=== PATIENT | female | born 1955 | race Caucasian/White ===

== ENCOUNTER → 2016-04-27 | Outpatient (CLI) | payer OTHER ==
--- NOTE | 2016-04-28 09:07 | MM ---
Reason for exam: screening (asymptomatic). Last mammogram was performed 1 year and 2 months ago. History: Patient is postmenopausal. Family history of breast cancer in maternal cousin. Physical Findings: A clinical breast exam by your physician is recommended on an annual basis and results should be correlated with mammographic findings. MG Screening Mammo w CAD Bilateral CC and MLO view(s) were taken. Prior study comparison: March 13, 2015, bilateral MG 3d screening mammo w/cad. February 11, 2014, bilateral MG screening mammo w CAD. There are scattered fibroglandular densities. There is no discrete abnormality. ASSESSMENT: Negative, BI-RAD 1 RECOMMENDATION: Routine screening mammogram of both breasts in 1 year.
== END | disposition home or self-care (01) ==
LOC: RADMAMWWP 09:26
PROVIDERS: ATTEND Family Medicine
DX: Z12.31 Encounter for screening mammogram for malignant neoplasm of breast (principal); Z78.0 Asymptomatic menopausal state; Z80.3 Family history of malignant neoplasm of breast

== ENCOUNTER → 2016-07-20 | Outpatient (CLI) | payer OTHER ==
--- NOTE | 2016-07-20 11:12 | FL ---
EXAMINATION TYPE: FL barium swallow DATE OF EXAM: 07/20/2016 LAP BANDING LIMITED ESOPHAGRAM: CLINICAL HISTORY: GERD per order. History of reflux and hiatal hernia repair 2014 with recurrent inga n and occasional dysphasia per patient. TECHNIQUE: Limited esophagram is performed utilizing thin liquid barium. A total of 2.9 minutes of f luoroscopic time was utilized during procedure. COMPARISON: CT abdomen and pelvis August 10, 2014. Upper GI study August 11, 2014. FINDINGS: The patient then drank oral contrast. There is good flow of contrast along the course of the proximal to mid esophagus. There is some delay in flow of contrast just past diaphragmatic hiatu s at level of prior Antolin fundoplication surgery. There is no leak appreciated. Some contrast remai ns in distal esophagus and refluxes up to mid esophageal level. Patient remains asymptomatic without nausea or vomiting. No recurrent hiatal hernia is seen. IMPRESSION: No evidence of recurrent hiatal hernia. Mild to moderate hesitancy or obstruction at hiat al hernia site is seen with reflux of contrast in distal esophagus to mid esophageal level noted. Pat ient remains asymptomatic.
== END | disposition home or self-care (01) ==
LOC: RADFLWHC 10:09
PROVIDERS: ATTEND Surgery
DX: K21.9 Gastro-esophageal reflux disease without esophagitis (principal)
CPT/HCPCS: 74220

== ENCOUNTER → 2017-07-14 | Outpatient (CLI) | payer OTHER ==
--- NOTE | 2017-07-18 14:54 | MM ---
Reason for exam: screening (asymptomatic). Last mammogram was performed 1 year and 3 months ago. History: Patient is postmenopausal. Family history of breast cancer in maternal cousin. Physical Findings: A clinical breast exam by your physician is recommended on an annual basis and results should be correlated with mammographic findings. MG Screening Mammo w CAD Bilateral CC and MLO view(s) were taken. Prior study comparison: April 27, 2016, bilateral MG screening mammo w CAD. March 13, 2015, bilateral MG 3d screening mammo w/cad. There are scattered fibroglandular densities. There is no discrete abnormality. No significant changes when compared with prior studies. ASSESSMENT: Negative, BI-RAD 1 RECOMMENDATION: Routine screening mammogram of both breasts in 1 year.
== END | disposition home or self-care (01) ==
LOC: RADMAMWWP 11:34
PROVIDERS: ATTEND Family Medicine
DX: Z12.31 Encounter for screening mammogram for malignant neoplasm of breast (principal)
CPT/HCPCS: 77067

== ENCOUNTER → 2017-07-26 | Outpatient (CLI) | payer OTHER ==
--- NOTE | 2017-07-26 13:45 | CT ---
EXAMINATION TYPE: CT urogram wo/w con DATE OF EXAM: 07/26/2017 HISTORY: Microscopic hematuria CT DLP: 2594mGycm Automated Exposure Control for Dose Reduction was Utilized. CONTRAST: CT scan of the abdomen and pelvis is performed without and with IV Contrast, patient injected with 10 0 mL of Isovue 300. COMPARISON: None. FINDINGS: LUNG BASES: No significant abnormality is appreciated. LIVER/GB: No focal hepatic lesion. Gallbladder is surgically absent with postsurgical dilatation of t he common bile duct and mild periportal edema. PANCREAS: No significant abnormality is seen. 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 ADRENALS: No significant abnormality is seen. KIDNEYS: A 2 mm nonobstructing left lower pole renal calculus is seen. No ureteral calculi are noted. There is a 6 mm right upper pole renal cyst. Small bilateral renal sinus cysts are best seen on the delayed images. Within the left lower pole there is a 2 small to accurately characterize hypoattenuat ed 4 mm lesion, likely representing a renal cyst. No hydronephrosis of either kidney. No uroepithelia l thickening. Urinary bladder is nonopacified and incompletely evaluated. No gross evidence of masses seen within the urinary bladder. No ureteral dilatation. BOWEL: Postsurgical changes are noted at the gastroesophageal junction. Numerous colonic diverticula are present without pericolonic fat stranding. Appendix is air-filled and within normal limits of siz e. UTERUS/ADNEXA: Surgical clip, likely tubal ligation clip is noted on the right. Uterus is grossly unr emarkable. LYMPH NODES: No greater than 1cm abdominal or pelvic lymph nodes are appreciated. OSSEOUS STRUCTURES: No significant abnormality is seen. IMPRESSION: 1. Nonobstructing left lower pole 2 mm renal calculus. 2. Benign-appearing renal cysts, renal sinus cysts, and too small to accurately characterize probable renal cysts. 3. No evidence of hydronephrosis, uroepithelial thickening or ureteral stricture. Urinary bladder is unopacified and incompletely evaluated. 4. Incidental note of a splenic infarct.
== END | disposition home or self-care (01) ==
LOC: RADCTMAIN 10:46
PROVIDERS: ATTEND Family Medicine
DX: N20.0 Calculus of kidney (principal); N28.1 Cyst of kidney, acquired; D73.5 Infarction of spleen
CPT/HCPCS: 74178; 74400; Q9967